=== PATIENT | male | born 1950 | race Caucasian/White ===

== ENCOUNTER → 2016-09-25 | Outpatient (CLI) | payer MEDICARE ==
[~2016-09-25] MED LIST: ASPIRIN81 M2 PO; ASPIRIN81 MG PO; BACTRIM DS TABL1 TA1 PO; BAYER CHEWABLE81 MG; BYSTOLIC5 MG PO; CELEXA PO; CLEOCIN PO; CLOPIDOGREL BIS75 MG PO; CLOPIDOGREL75 MG PO; CRESTOR10 MG PO; DIOVAN PO; DOCUSATE SODIU100 MG PO; EFFIENT10 MG PO; HYDROCODON-ACE1 EAC7 PO; IMDUR PO; IMDUR-ER60 M1 PO; LIPITOR80 MG PO; LISINOPRIL20 MG PO; LOPRESSOR PO; METFORMIN PO; MIRALAX119 GM; NITROGLYCERIN0.4 MG SL; NORVASC PO; PATIENT'S PHARMACY; PRAVACHOL20 MG PO; PRAVASTATIN SOD40 MG PO; PREVACID15 M1 PO; PROTONIX PO; SENNA S TABLET1 TAB PO
--- NOTE | ~2016-09-25 | CR63 ---
[facility] A Service of [facility] & [facility] RADIOLOGY TEXT RESULTS PATIENT: DORIS MORA LOCATION: [facility] : 50 UNIT #: [id number] AGE: [address]: Joselito Arzate MD SEX: M ORDER DR: [id number] [facility] [address] [place], [place] [address] [id number] O MR#: [id number] Acc #: [id number] NAME: DORIS MORA : 1950 SEX: M STUDY DATE/TIME: 09/25/2016 13:04 UNIT: [facility] ROOM: STUDY DESCRIPTION: CR Chest 2 View Attending Physician: Joselito Arzate M.D. Referring Physician: Joselito Arzate M.D. Ordering Physician: Joselito Arzate M.D. Primary Care Physician: Magdi Caceres M.D. MEDICAL IMAGING REPORT This report is preliminary unless electronic signature is present EXAM Chest PA and lateral 09/25/2016 COMPARISON STUDIES 01/12/2016. HISTORY Status post right nephrectomy for kidney cancer. Shortness of breath for 5 months. FINDINGS PA and lateral views obtained showing postoperative changes of prior bypass surgery. The heart size is normal and the lungs are clear. CONCLUSION 1. Status post CABG. 2. No active disease. Dictated by... Jer Lloyd M.D. THIS IS AN ELECTRONICALLY VERIFIED REPORT Jer Lloyd M.D. at 09/27/2016 4:46 PM EAN/antwan TD: 09/25/2016 17:34 JOB #: [id number] MEDICAL IMAGING REPORT COPY
[2016-09-25 13:33] LABS: ALBUMIN SERUM 4.7 g/dL (3.5-5.0); BILIRUBIN,TOTAL 0.9 mg/dL (0.2-2.0); BUN/CREATININE RATIO 8.12; CALCIUM SERUM 9.8 mg/dL (8.4-10.2); CREATININE SERUM 1.6 mg/dL (0.6-1.4); GLOM FILT RATE Estimated 46.3 mL/min (>60); POTASSIUM 5.1 mmol/L (3.5-5.1); PROTEIN TOTAL SERUM 7.8 g/dL (6.0-8.3)
== END | disposition home or self-care (01) ==
LOC: CLAB 11:35
PROVIDERS: Urology
DX: C64.1 Malignant neoplasm of right kidney, except renal pelvis (principal); Z95.1 Presence of aortocoronary bypass graft
CPT/HCPCS: 36415; 71020; 80053

== ENCOUNTER → 2016-09-26 | Outpatient (CLI) | payer MEDICARE ==
--- NOTE | ~2016-09-26 | CT2 ---
[facility] A Service of [facility] RADIOLOGY TEXT RESULTS PATIENT: DORIS MORA LOCATION: : 50 UNIT #: [id number] AGE: [address]: Joselito Arzate MD SEX: M ORDER DR: [id number] [facility] [address] [place], [place] [address] [id number] O MR#: [id number] Acc #: [id number] NAME: DORIS MORA : 1950 SEX: M STUDY DATE/TIME: 09/26/2016 10:03 UNIT: [facility] ROOM: STUDY DESCRIPTION: CT Abd and Pelv W Cont Attending Physician: Joselito Arzate M.D. Referring Physician: Joselito Arzate M.D. Ordering Physician: Joeslito Arzate M.D. Primary Care Physician: Magdi Caceres M.D. MEDICAL IMAGING REPORT This report is preliminary unless electronic signature is present EXAM CT of the abdomen and pelvis without and with contrast, 09/26/2016. HISTORY Difficulty urinating. Patient has a history of a right renal mass and is status post right nephrectomy. Patient underwent a CT scan in January 2016 that showed a mixed density lesion with potentially some enhancing nodules within the nephrectomy bed. This exam is requested for surveillance for metastatic disease. TECHNIQUE Arterial phase imaging was obtained through the kidneys. 90-second delayed phase imaging was obtained through the abdomen and pelvis and 3-minute delayed phase imaging was obtained through the kidneys. This CT exam was performed with one or more of the following radiation dose reduction techniques: automatic exposure control, adjustment of mA and/or kV according to patient size, and iterative reconstruction. FINDINGS On the prior CT from January 2016, this patient had some enhancing nodules within the right renal fossa. I suspect these may have been surgically resected, as there are now some surgical clips in this area that were not present on the prior study. There are a few scattered tiny nodules within this area, ranging in size from about 4 to 6 mm. These are indeterminate. I think they could reflect some normal mesenteric nodes or perhaps even vessels. Certainly, I do not see any convincing evidence of recurrent or residual disease within the right renal fossa. Images through the lung bases are clear. The spleen, stomach and proximal small bowel are within normal limits. No focal hepatic lesions are seen. The left kidney appears unremarkable. The [facility] A Service of [facility] RADIOLOGY TEXT RESULTS PATIENT: DORIS MORA LOCATION: [facility] : 50 UNIT #: [id number] AGE: [address]: Joselito Arzate MD SEX: M ORDER DR: gallbladder is surgically absent. There is some atherosclerotic involvement of the abdominal aorta with some extension into the origins of the visceral vessels that I think is resulting in some narrowing of the proximal celiac axis. There are some shotty retroperitoneal lymph nodes that have been unchanged since 2012 and thus are benign. There is no evidence of mechanical bowel obstruction. The appendix is visualized and is within normal limits. The prostate gland is enlarged and heterogeneous. The urinary bladder is probably within normal limits. I do not see any free fluid or adenopathy within the pelvis. Review of bone windows does not demonstrate any aggressive osseous abnormalities. IMPRESSION 1. Since the prior exam from January 2016, I think the patient probably has undergone resection of some enhancing nodules within the right renal fossa. I do not see any convincing evidence of recurrent or residual disease within this area. 2. Left kidney appears unremarkable. 3. Please see the body of the report for any other additional incidental findings. Dictated by... Rachael Aguayo M.D. THIS IS AN ELECTRONICALLY VERIFIED REPORT Rachael Aguayo M.D. at 09/26/2016 4:57 PM AFF/js TD: 09/26/2016 13:29 JOB #: [id number] MEDICAL IMAGING REPORT COPY
== END | disposition home or self-care (01) ==
LOC: CSSDAY 08:16
DX: C64.1 Malignant neoplasm of right kidney, except renal pelvis (principal)
CPT/HCPCS: 74177; Q9967

== ENCOUNTER 2017-03-07 11:29 | Observation (INO) | payer MEDICARE ==
[~2017-03-07] VITALS: Ht 172.7 cm; Wt 99.9 kg
--- NOTE | ~2017-03-07 | CO ---
Unit #: [id number] #: [id number] Patient: DORIS MORA [id number] [facility] [address] [place], [place] [address] [id number] I MR#: [id number] NAME: DORIS MORA ROOM: 328 Age: 66 Sex: M Admission Date: 03/07/2017 : 1950 Attending Physician: Tomás Barrow M.D. Primary Care Physician: Magdi Caceres M.D. Consultation Date: 03/08/2017 CONSULTATION REPORT PRIMARY CARE PHYSICIAN Magdi Caceres M.D. REASON FOR CONSULTATION Vision loss on the right side. PATIENT IDENTIFICATION This is a 66-year-old right-handed white male, who was evaluated in room 328 at [facility]. SOURCE OF INFORMATION The patient. PROBLEM LIST 1. History of coronary artery disease. 2. Diabetes mellitus type 2. 3. Hypertension. 4. Hyperlipidemia. 5. GERD. 6. Chronic kidney disease. 7. Constipation. 8. Questionable obesity. 9. Status post EGD and colonoscopy and coronary artery bypass grafting. 10. Prior right nephrectomy. HISTORY OF PRESENT ILLNESS This is a very pleasant, but very anxious 66-year-old gentleman, who actually presented to the emergency room yesterday and the reason was because reportedly he was sent by Dr. Patel at [facility] for possible central retinal artery occlusion. His history is very sketchy. He reports that about 3 weeks ago, he went to the doctor for routine checkup and was told that he has a retinal hemorrhage. Then about a week or so ago, he went to Dr. Patel because he was referred there and he said that he wanted to do some eye procedure with eye injection or taking something off. For some reason, it was not scheduled then and what strange is that he was on aspirin and Plavix and they were not stopped, but he started getting worse and it looks like the , he called the nurse and said his vision is getting worse and it looks like what he was describing was central vision loss and he could see a TV and something on the periphery and left lower region and that is about it in the right eye, so they made an emergency appointment for him yesterday and he went there and he was seen and was sent here for further workup. I talked to the ER physician and requested MRI, CT, and CTA, but it looks like that has not been done. Uncertain about that, Ophthalmology is supposed to see Unit #: [id number] #: [id number] Patient: DORIS MOAR. Cardiology had been consulted. He is very restless and wants to go home. There is something about his truck. His vital signs are stable. He does not have any bleeding or clotting disorder, otherwise supposedly on aspirin and Plavix. His carotids totally were unremarkable. CT was reported as unremarkable. MRI and CT are not done. I do not see any significant problem with his kidney function. His estimated GFR was anywhere from 47.8 to 56.9. Cardiology is seeing him. Ophthalmology consultation is in order. He does not have any double vision, speech swallowing, or breathing problem. No headaches or migraines. No focal weakness or numbness. He denies any noncompliance. PAST MEDICAL HISTORY As discussed above. PAST SURGICAL HISTORY As discussed above. ALLERGIES Clindamycin and Cipro. HOME MEDICATIONS Glucophage 1000 mg p.o. at bedtime, Lopressor 100 mg p.o. b.i.d., aspirin 81 mg daily, Plavix 75 mg daily, Norvasc 5 mg at bedtime, pravastatin sodium 40 mg, Protonix 40 mg. FAMILY HISTORY Strokes in the family. SOCIAL HISTORY He is single. He apparently lives alone. Denies tobacco, alcohol, or drug use. He is retired. REVIEW OF SYSTEMS GENERAL: Vision changes. No weight issues. No sleep problems. No fever, chills, rigor, or sweats. HEENT: No headaches. No double vision, earache, runny nose, or sore throat. CARDIOVASCULAR: No chest pain, clubbing, cyanosis, orthopnea, or palpitation. PULMONARY: No shortness of air, cough, or expectoration. GASTROINTESTINAL: No nausea, vomiting, diarrhea, or constipation. GENITOURINARY: No genitourinary symptoms. EXTREMITIES: No extremity problems. BACK: No back problems. PSYCHIATRIC: No psychotic issue. NEUROLOGIC: As discussed. No other hematologic, dermatologic, or endocrine issues known to me. Ophthalmological issues discussed in detail in history of present illness. Unit #: [id number] #: [id number] Patient: DORIS MORA PHYSICAL EXAMINATION VITAL SIGNS: Temperature 98 degrees Fahrenheit, pulse 58, respirations 19, blood pressure 155/87, O2 saturations 98% to 100%. Weight of 218 pounds. BMI was 33. NEUROLOGIC: The patient is awake. He is alert. He is oriented. He can name and he can follow commands. No right or left confusion. No finger agnosia. Cranial nerve examination, he has what looks like central loss of vision. On periphery, he can see movement. He cannot read. I cannot say otherwise field issue. His left eye corrected is essentially 20/20. Pupils are round, reactive to light, and accommodation. Eye movements are conjugate. No ptosis. No nystagmus. Sensation on the face and scalp are normal. Strength of muscles of facial expression normal. Hearing seemed to be intact. Tongue was midline. Uvula was midline. Palate elevation was normal. Head turning and shoulder shrugs are unremarkable. Motor examination demonstrated normal bulk, tone. Strength was essentially 5/5. Sensory examination intact for soft touch and pain sensation. No extinction was seen. Romberg was negative. Gait examination was otherwise benign. I could not get any reflexes. I could not check toe signs. This lamar is ready wearing his shoes, wearing his private clothes, and wants to go home. DIAGNOSTIC STUDIES LABORATORY RESULTS: His chemistry profile looked okay. Lipid panel shows LDL of 80, cholesterol was 126, triglyceride 87. White count 4.6, H and H of 13.7 and 40.2, platelet count is 110. IMAGING STUDIES: Reviewed including CTA carotid report. Preliminary says normal, but I do not have that report. IMPRESSION This is a very interesting, but very complicated 66-year-old gentleman with what looks like central artery occlusion, but what is concerning is that this has been going on for 2 to 3 weeks and getting worse. He says that he has hemorrhage first, but he yet to stop his aspirin and Plavix and then he went to another contact center professional who said he is going to do some sort of eye procedure and injections or put a needle in his eye and even that was not done and then he goes back and he was told that he has a bigger problem and central artery occlusion and that all does not really make sense to me the way it is. Was this a stroke. His CT is okay. He was supposed to have CTA or MRA done and that has not been done. He is supposed to have an MRI done, that was not done. His echo was done, and he may need a LUCIANA and he has no hypercoagulable state. Ophthalmology is supposed to see him. He is nonsmoker. I have requested workup and I will follow up on any neurologic issue and I agree that if his MRA is okay because I am not going to give him contrast as he has single kidney and I do not want to take any chances and if his MRA and MRI are okay, then probably he would need an event monitor or LUCIANA, but neurologically, I would not do anything. If okay with Cardiology, I will just do Plavix or aspirin only because of this "hemorrhage." Ophthalmology is supposed to see him. Again the history is very sketchy. The timings are very sketchy Unit #: [id number] #: [id number] Patient: DORIS MORA and is this going on for 3 weeks, what was the first event, what is the subsequently event, hemorrhage. I could not get anything. I could not do ophthalmoscopic examination. He probably needs a dilated exam and we probably need all the records, but it is a weekend and all the Ophthalmology centers are closed, so we need help from all the team members to sort this out and I told him I even addressed his truck issue. He said now it is okay, it is parked outside. Please see my orders. Dictated by... Garland Jones/leora TD: 03/10/2017 01:13 JOB #: [id number] CONSULTATION REPORT Page 1 of 1 X Basil Asif MD CONSULTATION REPORT
--- NOTE | ~2017-03-07 | DS ---
Unit #: [id number] #: [id number] Patient: DORIS MORA [id number] [address] [address] [id number] I MR#: [id number] NAME: DORIS MORA ROOM: 328 Age: 66 Sex: M Admission Date: 03/07/2017 : 1950 Discharge Date: 03/09/2017 Attending Physician: Tomás Barrow M.D. Primary Care Physician: Magdi Caceres M.D. DISCHARGE SUMMARY 66-year-old white male has a history of coronary artery disease with history of right renal mass, status post nephrectomy and diabetes mellitus type 2, hypertension, hyperlipidemia, obstructive sleep apnea, CKD, who came to the emergency room after told by ophthalmology he might have had a possible stroke. He has noticed some loss of vision in the right eye and had some hemorrhage in his right eye. During his hospital stay he was seen by Dr. Asif. He had MRI and MRA done, which was unremarkable. He was also seen by the brazing machine operator, Dr. Richter. The patient is stable at this time to be discharged home to be followed as an outpatient by Dr. Richter and ophthalmology. 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 HOME MEDICATIONS 1. Metformin 1,000 mg twice daily. 2. Amlodipine 5 mg at bedtime. 3. Metoprolol 100 mg twice daily. 4. Atorvastatin 80 mg daily. 5. Aspirin daily. 6. Plavix 75 mg daily. 7. Protonix 40 mg b.i.d. CONDITION AT DISCHARGE Stable. FOLLOWUP With cardiology as an outpatient. Follow with Dr. Escobedo, neurology, as an outpatient. Followup with ophthalmology as an outpatient, Alejandro Dictated by... Garland Bowman/dereje TD: 03/10/2017 11:30 JOB #: [id number] Unit #: [id number] #: [id number] Patient: DORIS MORA DISCHARGE SUMMARY Page 1 of 1 X Denia Morin MD X DISCHARGE SUMMARY
--- NOTE | ~2017-03-07 | MR18 ---
[facility] A Service of [facility] & [facility] RADIOLOGY TEXT RESULTS PATIENT: DORIS MORA LOCATION: [facility] 328-01 : 50 UNIT #: [id number] AGE: [address]: Tomás Barrow MD SEX: M ORDER DR: [id number] [facility] [address] [place], [place] [address] [id number] I MR#: [id number] Acc #: [id number] NAME: DORIS MORA : 1950 SEX: M STUDY DATE/TIME: 03/08/2017 15:11 UNIT: [address] ROOM: [facility] STUDY DESCRIPTION: MR Brain Wo Contrast Attending Physician: Tomás Barrow M.D. Ordering Physician: Basil Asif M.D. Primary Care Physician: Magdi Caceres M.D. MRI CENTER REPORT This report is preliminary unless electronic signature is present. EXAM MRI brain without. HISTORY Stroke evaluation. 66-year-old male patient with right eye visual loss. Concern for possible CVA. Symptoms started on 03/06/2017. History of hypertension and history of right kidney cancer removed. COMMENTS MRI of the brain was performed without contrast using routine 1.5T imaging technique. COMPARISON Comparison head CT is from 03/07/2017. FINDINGS There is no evidence for a recent ischemic insult on the diffusion series. There is mild generalized atrophy. There is no extraaxial fluid collection. The mastoid air cells are clear. There is some vertebrobasilar dolichoectasia with the ectatic left vertebral artery resulting in mild mass effect on the medulla. The major intracranial flow voids are maintained. Otherwise, there is no intracranial mass effect and there is no extraaxial fluid collection. There is no MRI evidence for intracranial hemorrhage. There is a small focus of signal abnormality in the right parietal cortex consistent with small focus of gliosis due to remote insult. It is up to 1.2 cm in dimension. There are small areas of white matter signal abnormality, subcortical, deep and periventricular white matter otherwise which are nonspecific but likely due to mild small vessel disease. Partly seen is paranasal sinus disease. The patient has had prior paranasal sinus surgery, and there is partly seen lesion left maxillary sinus which is nonspecific on imaging. It could be some type of a STS. [facility] A Service of [facility] RADIOLOGY TEXT RESULTS PATIENT: DORIS MORA LOCATION: [facility] 328-01 : [birth year] UNIT #: [id number] AGE: [address]: Tomás Barrow MD SEX: M ORDER DR: mucocele. It measures about 1.4 x 2.2 cm dimension. View of the earlier head CT does not include this area and there is no prior sinus CT. Also some polypoid mucosal disease appreciated in the posterior left nasal cavity to the anterior left nasopharynx about 1.4 cm dimension. I would recommend that this patient be evaluated with a followup CT of the paranasal sinuses to assess the bone changes, and please correlate with the sinus surgery history. There is mucosal disease and partial opacification in the ethmoid air cells. IMPRESSION 1. There is no evidence for a recent ischemic insult on the diffusion series. 2. There is a small focus of chronic malacia right parietal cortex and there is mild probable sequelae of small vessel disease. 3. Some vertebrobasilar dolichoectasia noted. 4. There is extensive paranasal sinus disease likely with prior surgery. It is only partly in the field of view and I would recommend correlation with a CT of the paranasal sinuses for better assessment of bony anatomy. See full description above. STAT * RESULT Dictated by... Shira Bender M.D. THIS IS AN ELECTRONICALLY VERIFIED REPORT Shira Bender M.D. at 03/08/2017 4:09 PM NAOMI/charmaine TD: 03/08/2017 15:53 JOB #: [id number] MRI CENTER REPORT Page 1 of 1 COPY
--- NOTE | ~2017-03-07 | EKG ---
PATIENT: DORIS MORA UNIT #: [id number] Ventricular Rate: 44 BPM Atrial Rate: 44 BPM P-R Interval: 174 ms QRS Duration: 82 ms Q-T Interval: 456 ms QTC Calculation(Bezet): 389 ms P [place]: 47 degrees Calculated R [place]: -2 degrees Calculated T [place]: 39 degrees Diagnosis Line: Marked sinus bradycardia Diagnosis Line: Borderline ECG Diagnosis Line: When compared with ECG of 16-MAY-2016 05:35, Diagnosis Line: No significant change was found Diagnosis Line: Confirmed by PAVAN SAPP MD ([id number]) on 03/09/2017 Diagnosis Line: 2:50:57 PM INTERPRETING MD: SENAIT MAYEN
--- NOTE | ~2017-03-07 | US37 ---
[facility] A Service [facility] RADIOLOGY TEXT RESULTS PATIENT: DORIS MORA LOCATION: [facility] : 50 UNIT #: [id number] AGE: [address]: Tomás Barrow MD SEX: M ORDER DR: [id number] [address] [place], [place] [address] [id number] I MR#: [id number] Acc #: [id number] NAME: DORIS MORA : 1950 SEX: M STUDY DATE/TIME: 03/08/2017 7:29 UNIT: [address] ROOM: [address] [place] [address] DESCRIPTION: US Carotid W/Doppler Bilateral Attending Physician: Tomás Barrow M.D. Ordering Physician: Ed Doctor [id number] [facility] Primary Care Physician: Magdi Caceres M.D. MEDICAL IMAGING REPORT This report is preliminary unless electronic signature is present EXAM Carotid Doppler ultrasound. HISTORY Loss of vision in the right eye 1 week ago. Chronic hypertension TECHNIQUE Ultrasound evaluation was performed with grayscale, color flow and Doppler spectral waveform analysis. TECHNIQUE Bilateral carotid ultrasound examination was performed using grayscale, spectral Doppler, and color flow Doppler imaging. Carotid flow was assessed using standards based on NASCET methodology. FINDINGS No significant atheromatous plaque is identified within the carotid arteries in the neck bilaterally. Doppler evaluation shows normal flow velocities and normal Doppler waveforms within the carotid and vertebral arteries bilaterally. There is no evidence of significant carotid stenosis in the neck. IMPRESSION Normal carotid Doppler ultrasound examination. Dictated by... Joselito Wiggins M.D. THIS IS AN ELECTRONICALLY VERIFIED REPORT Joselito Wiggins M.D. at 03/09/2017 10:32 AM RLF/candi [facility] A Service [facility] RADIOLOGY TEXT RESULTS PATIENT: DORIS MORA LOCATION: [facility] : 50 UNIT #: [id number] AGE: [address]: Tomás Barrow MD SEX: M ORDER DR: TD: 03/09/2017 05:53 JOB #: [id number] MEDICAL IMAGING REPORT Page 1 of 1 COPY
--- NOTE | ~2017-03-07 | HP ---
Unit #: [id number] #: [id number] Patient: DORIS MORA [id number] [address] [place], [place] [address] [id number] MR#: [id number] NAME: DORIS MORA ROOM: Age: 66 Sex: M Admission Date: 03/07/2017 : 1950 Attending Physician: Johnnie Blackwell M.D. Primary Care Physician: Magdi Caceres M.D. HISTORY AND PHYSICAL CHIEF COMPLAINT Vision loss. HISTORY OF PRESENT ILLNESS The patient is a 66-year-old male with a history of a coronary artery disease, history of a right renal mass, status post nephrectomy and diabetes mellitus type 2, hypertension, hyperlipidemia, and obstructive sleep apnea and chronic kidney disease, brought to the emergency room from the ophthalmology for possible stroke. The patient stated the patient was having problems with the eye and was seen by the personnel coordinator for the eyeglass change. The patient was requiring the prescription glasses; however, the patient was sent to the ophthalmology for the further workup. The patient was found to have a hemorrhage in the retina. The patient was scheduled to follow with the ophthalmology in a few weeks. However, the patient states that the patient started losing the eye vision in the central vision and able to see the peripheral of the object with the right eye. The patient went to the ophthalmology earlier today and was sent to the emergency room for further workup. The patient had a CT of the head that shows no acute intracranial findings. The patient is getting admitted for the further workup. Denies any fever. Denies any chill. Denies any trauma, nausea or vomiting, headache. PAST MEDICAL HISTORY History of a coronary artery disease, diabetes mellitus type 2, hypertension, hyperlipidemia, gastroesophageal reflux disease, hyperlipidemia, chronic kidney disease, constipation and obesity. PAST SURGICAL HISTORY History of a cardiac cath, EGD and colonoscopy, coronary artery bypass grafting, prior right nephrectomy. HOME MEDICATIONS Patient is on Glucophage, Lopressor, aspirin, Norvasc, pravastatin, Protonix, Plavix. ALLERGIES Clindamycin and ciprofloxacin. SOCIAL HISTORY No history of smoking cigarettes, alcohol or any illicit drug abuse. FAMILY HISTORY Family history positive for the strokes in the family. Unit #: [id number] #: [id number] Patient: DORIS MORA REVIEW OF SYMPTOMS Positive for the central vision loss in the right eye. Denies any fever. Denies any chill. Denies any nausea or vomiting. Denies any chest pain. Denies any headache. Other systems have been reviewed and all other systems are negative. PHYSICAL EXAMINATION GENERAL APPEARANCE: On examination the patient is sitting on a chair, not in acute distress. VITAL SIGNS: Temperature 98, pulse 44, respiratory rate 20, blood pressure 141/80, sating 99% at room air. HEENT: Head atraumatic and normocephalic. Pupils with the right pupil dilated. NECK: Supple. LUNGS: Decreased air entry at the bases. HEART: Regular rhythm, bradycardia, and positive for murmur. ABDOMEN: Soft, positive bowel sounds. EXTREMITIES: No cyanosis. No clubbing. NEUROLOGIC: Motor strength is normal in upper and lower extremities with the central vision loss in the right eye. No facial droop. DIAGNOSTIC STUDIES LABORATORY DATA: Glucose is 84 and troponin is less than 0.05 and WBC is 4.9, hemoglobin 14.1, hematocrit 42, platelet is 176, INR is 1.1 and sodium 141, potassium 4.5, chloride 109, bicarb 25, glucose 94, BUN 14, creatinine 1.5, AST 26, ALT 22, alkaline phosphatase 52. ASSESSMENT 1. Right eye central vision loss. 2. Bradycardia. 3. Diabetes. 4. Hypertension. PLAN 1. Plan to admit the patient to the observation with the telemetry. 2. Patient will be seen by neurology to rule out the stroke. 3. The patient will also follow with ophthalmology for the central vision loss. 4. Hold the Lopressor for the bradycardia. 5. Follow with the serial troponins. 6. Follow with the MRI/MRA of the brain. 7. Repeat the labs again in the morning. 8. If patient continues to remain bradycardic, will have the cardiology evaluation as needed. Dictated by Garland Rosario TD: 03/07/2017 16:32 JOB #: [id number] Unit #: [id number] #: [id number] Patient: DORIS MORA HISTORY AND PHYSICAL Page 1 of 1 X RYAN SOMMER MD HISTORY AND PHYSICAL
--- NOTE | ~2017-03-07 | CO ---
Unit #: [id number] #: [id number] Patient: DORIS MERCHANT [id number] [address] [place], [place] [address] [id number] I MR#: [id number] NAME: DORIS MERCHANT ROOM: 328 Age: 66 Sex: M Admission Date: 03/07/2017 : 1950 Attending Physician: Tomás Barrow M.D. Primary Care Physician: Magdi Caceres M.D. Consultation Date: 03/07/2017 CONSULTATION REPORT REASON FOR CONSULTATION Probable retinal artery embolism, rule out cardiac causes. HISTORY OF PRESENT ILLNESS Mr. Merchant is a 66-year-old white male, known to me for the last about 5 years, who is known to have diabetes mellitus, hypertension, hyperlipidemia, and was diagnosed to have three-vessel coronary artery disease in 04/2013 when he presented to the hospital with unstable angina pectoris. He subsequently underwent three-vessel bypass graft surgery with left internal mammary graft to LAD, vein graft to second marginal branch of circumflex, and a vein graft to distal right coronary artery. Because of recurrent angina pectoris in 2014, a repeat catheterization was performed, which revealed a preserved left ventricular systolic function, LEHMAN graft to LAD, and vein graft to right coronary artery were patent, but the vein graft to marginal branch of circumflex was occluded at its aortic anastomosis. It was elected to continue him on medical therapy with inclusion of dual anti-platelet regimen of Plavix and aspirin. His admission is necessitated because of a new diagnosis of probable right retinal artery occlusion cause of which is being investigated. His symptoms started about 2 or 3 weeks ago with blurring of the right eye visual brown and he underwent fluorescein angiography, evaluation for possible glaucoma and was evaluated by Dr. Patel from the Retina Service and advised admission to the hospital. The patient says he notices a big visual defect in the middle of his visual field as there is a black blob sitting there. He denies any headaches, has not experienced any other neurological symptoms of loss of balance, weakness in extremities, headache, diplopia, or blurred vision. From a cardiac standpoint, he complains of rare episodes of chest discomfort, described as pressure and heaviness in the mid anterior chest. On numerous occasions, he has complained of a "vibrating sensation" in his chest early in the morning when he wakes up, but it resolved spontaneously. He remains reasonably active. He denies any chest discomfort on exertion, exertional dyspnea, orthopnea, nocturnal dyspnea, and he denies any syncope, near syncope, amblyopia. There is no history of strokes or transient ischemic attacks. He denies any history of rheumatic fever or heart murmur. PAST MEDICAL HISTORY Includes: 1. Diabetes mellitus. 2. Hyperlipidemia. 3. Hypertension. Unit #: [id number] #: [id number] Patient: DORIS MERCHANT 4. Removal of right renal mass. 5. Cholelithiasis and cholecystectomy. 6. Three-vessel coronary artery bypass graft surgery. 7. Gastroesophageal reflux disease. 8. Obstructive sleep apnea. 9. Nephrectomy in 2013. 10. Thrombocytopenia. 11. Mild obesity. SOCIAL AND PERSONAL HISTORY He smoked during his teenage years and has used very small amount of alcohol throughout his life. FAMILY HISTORY His father suffered a massive IL in his 40s. Mother had a rheumatic heart disease. One brother had carotid artery disease. PHYSICAL EXAMINATION GENERAL: Reveals a middle-aged moderately obese male, in no acute cardiorespiratory distress. VITAL SIGNS: Blood pressure is 140/78 mmHg. NECK: Both carotids have a diminished upstroke without any bruits and there is no ankle edema. No jugular venous distention is noted. CARDIAC: Shows apical impulse is palpable in the fifth intercostal space and midclavicular line and is normal. Both heart sounds are normal. Rhythm is regular. No ectopy is noted. There is no murmur or gallop. CHEST: Shows normal to palpation, percussion, and auscultation. ABDOMEN: Shows obesity. There is no hepatosplenomegaly, free fluid, or masses. RECTAL: Deferred. SAFETY BELT INSTALLER: Within normal limits. DIAGNOSTIC STUDIES LABORATORY RESULTS: Lab investigations reveal glucose is 94, creatinine 1.5, GFR 47.8, potassium is 4.5, total protein is normal. INR was 1.1, PTT 21.7. Hemoglobin 14.1, hematocrit 42.0. IMPRESSION 1. Possible right retinal artery occlusion secondary to embolic event from carotid artery or from ascending aorta. 2. Status post three-vessel bypass surgery in 2012. 3. Occluded saphenous vein graft to obtuse marginal branch with patent left internal mammary artery graft to left anterior descending, and patent vein graft to right coronary artery in about 2014 cardiac catheterization. 4. Diabetes mellitus. 5. Hyperlipidemia. 6. Truncal obesity. 7. Status post right nephrectomy for a malignant renal mass. PLAN The patient is being admitted to the hospital. Carotid Doppler ultrasound would be performed. A 2D echo and Doppler study would be performed to rule out LV apical thrombus. He may require a transesophageal echocardiogram to rule out atherosclerotic disease in aortic root and arch as a source of embolus if carotid Doppler ultrasound shows no significant stenosis. Thyroid function studies would be checked. He would be continued on aspirin and Plavix for the time being along with beta-blockers, statin, and CECI inhibitor should be restarted, but we will Unit #: [id number] #: [id number] Patient: DORIS MERCHANT defer that to Internal Medicine Service. Thank you very much. Dictated by... Garland Varma/leora TD: 03/10/2017 02:11 JOB #: [id number] Be Patel M.D. CONSULTATION REPORT Page 1 of 1 X Tera Richter MD X CONSULTATION REPORT
--- NOTE | ~2017-03-07 | CT71 ---
[facility] A Service of [facility] RADIOLOGY TEXT RESULTS PATIENT: DORIS MORA LOCATION: [facility] 328 : 50 UNIT #: [id number] AGE: [address]: Tomás Barrow MD SEX: M ORDER DR: [id number] [place] [id number] [facility]. [place], [place] [address] [id number] I MR#: [id number] Acc #: [id number] NAME: DORIS MORA : 1950 SEX: M STUDY DATE/TIME: 03/07/2017 15:37 UNIT: [address] ROOM: [address] [place] [address] DESCRIPTION: CT Head Wo Contrast Attending Physician: Char Phillips M.D. Ordering Physician: Johnnie Blackwell M.D. Primary Care Physician: Magdi Caceres M.D. MEDICAL IMAGING REPORT This report is preliminary unless electronic signature is present EXAM CT head INDICATIONS Headache. Abnormal physical exam. Right eye vision changes. Headache. TECHNIQUE CT of the head without contrast. This CT exam was performed with one or more of the following radiation dose reduction techniques: automatic control, adjustment of mA and/or kV according to patient size, and iterative reconstruction. COMPARISON CT head dated 07/14/2009. FINDINGS Axial noncontrast images were obtained from the skull base to the vertex. Ventricular size and configuration are normal. There is no evidence of acute infarct or hemorrhage. There are no extra-axial fluid collections. No mass lesion or mass effect is seen. There are no skull fractures. IMPRESSION Normal noncontrast head CT. Dictated by... Troy Kennedy M.D. THIS IS AN ELECTRONICALLY VERIFIED REPORT Troy Kennedy M.D. at 03/08/2017 3:53 PM RPC/rnr TD: 03/08/2017 04:23 [facility] A Service [facility] RADIOLOGY TEXT RESULTS PATIENT: DORIS MORA LOCATION: [facility] 328 : 50 UNIT #: [id number] AGE: [address]: Tomás Barrow MD SEX: M ORDER DR: JOB #: [id number] MEDICAL IMAGING REPORT Page 1 of 1 COPY
--- NOTE | ~2017-03-07 | MR122 ---
[facility] A Service of [facility] RADIOLOGY TEXT RESULTS PATIENT: DORIS MORA LOCATION: [facility] 328-01 : 50 UNIT #: [id number] AGE: [address]: Tomás Barrow MD SEX: M ORDER DR: [id number] [facility] [address] [place], [place] [address] [id number] I MR#: [id number] Acc #: [id number] NAME: DORIS MORA : 1950 SEX: M STUDY DATE/TIME: 03/08/2017 14:49 UNIT: [address] ROOM: [facility] STUDY DESCRIPTION: MR MRA Head Wo Contrast Attending Physician: Tomás Barrow M.D. Ordering Physician: Basil Asif M.D. Primary Care Physician: Magdi Caceres M.D. MRI CENTER REPORT This report is preliminary unless electronic signature is present. EXAM MR angiogram, intracranial. HISTORY Right eye vision loss. Concern for possible CVA, vision loss on , 03/06. History of hypertension. COMMENT MR angiography performed [place] vasculature. Please be aware that this study will not resolve the course of the right ophthalmic artery. There is supply of the basilar from the dominant left vertebral artery. The right vertebral artery appears to terminate in a PICA vessel. Again, there is some ectasia of the distal left vertebral artery such that there is some mass effect on the anterior aspect of the medulla. There is no intracranial vascular cutoff. There is probably a tiny anterior communicator present. No posterior communicator of significant size is seen on either side. No focal central stenosis is appreciated. The origin of the right ophthalmic artery is patent. No intracranial aneurysm is suspected allowing for the technical limitation of MR angiography in general for assessment for intracranial aneurysms. IMPRESSION 1. No intracranial vascular cutoff or focal central stenosis. The left vertebral artery is dominant supplying the basilar with some ectasia. The right vertebral artery terminates in a PICA vessel. STAT * RESULT Dictated by... Shira Bender M.D. [facility] A Service of [facility] RADIOLOGY TEXT RESULTS PATIENT: DORIS MORA LOCATION: [facility] 328-01 : 50 UNIT #: [id number] AGE: [address]: Tomás Barrow MD SEX: M ORDER DR: THIS IS AN ELECTRONICALLY VERIFIED REPORT Shira Bender M.D. at 03/09/2017 9:20 AM NAOMI/charmaine TD: 03/08/2017 16:12 JOB #: [id number] MRI CENTER REPORT Page 1 of 1 COPY
--- NOTE | ~2017-03-07 | MR134 ---
[facility] A Service of [facility] RADIOLOGY TEXT RESULTS PATIENT: DORIS MORA LOCATION: [facility] : 50 UNIT #: [id number] AGE: [address]: Tomás Barrow MD SEX: M ORDER DR: [id number] [place] [address] [address] [facility]. [place], [place] [address] [id number] I MR#: [id number] Acc #: [id number] NAME: DORIS MORA : 1950 SEX: M STUDY DATE/TIME: 03/08/2017 15:31 UNIT: [address] ROOM: [address] [place] [address] DESCRIPTION: MR MRA Neck Wo Contrast Attending Physician: Tomás Barrow M.D. Ordering Physician: Basil Asif M.D. Primary Care Physician: Magdi Caceres M.D. MRI CENTER REPORT This report is preliminary unless electronic signature is present. EXAM MR angiogram neck without contrast. HISTORY Right visual loss for 3 days. TECHNIQUE MR angiogram of the neck was performed without contrast FINDINGS The origins of the common carotid arteries and vertebral arteries are not optimally visualized due to motion. The remainder of the common carotid arteries and the carotid bulbs and cervical internal carotid arteries are widely patent. 0% carotid artery stenosis by NASCET criteria. Both external carotid arteries are patent. Dominant left vertebral artery and hypoplastic right vertebral artery. IMPRESSION 1. No evidence of carotid artery stenosis by NASCET criteria. 2. Partly limited evaluation of the origins of the common carotid arteries and vertebral arteries. Dictated by... Bigg Bae M.D. THIS IS AN ELECTRONICALLY VERIFIED REPORT Bigg Bae M.D. at 03/09/2017 10:07 PM DFL/jane TD: 03/09/2017 17:13 JOB #: [id number] [facility] A Service [facility] RADIOLOGY TEXT RESULTS PATIENT: DORIS MORA LOCATION: [facility] 328 : 50 UNIT #: [id number] AGE: [address]: Tomás Barrow MD SEX: M ORDER DR: MRI CENTER REPORT Page 1 of 1 COPY
[~2017-03-07 11:29] MED LIST changes: -CLOPIDOGREL75 MG PO; -LIPITOR80 MG PO; -PATIENT'S PHARMACY; -PROTONIX PO
[2017-03-07 12:20] LABS: POC - CKMB 1.8 ng/mL (0.0-7.9); POC - TROPONIN <0.05 ng/mL (<=0.05)
[2017-03-07 13:23] LABS: BASOPHIL% 0.7 % (0-2.5); EOSINOPHIL# 0.3 X10e3 (0-0.7); EOSINOPHIL% 6.9 % (0.0-7.0); HEMOGLOBIN 14.1 gm/dL (13.0-16.0); LYMPHOCYTE# 1.7 X10e3 (1.0-3.5); LYMPHOCYTE% 33.8 % (17.0-45.0); MEAN CELL VOLUME 91.4 FL (83-96); MEAN CORPUSCULAR HEMOGLOBIN 30.7 PG (28-34); MEAN CORPUSCULAR HGB CONC 33.5 g/dL (30-36); MEAN PLATELET VOLUME 10.2 FL (6.5-11.5); MONOCYTE# 0.5 X10e3 (0-1.0); MONOCYTE% 9.3 % (3.0-12.0); NEUTROPHIL# 2.4 X10e3 (1.5-7.1); NEUTROPHIL% 49.3 % (40-75); PLATELET COUNT 176 X10e3 (140-420); RED BLOOD COUNT 4.59 X10e (3.90-5.60); RED CELL DISTRIBUTION WIDTH 13.5 % (11.0-15.5); WHITE BLOOD COUNT 4.9 X10e3 (4.0-10.5)
[2017-03-07 13:28] LABS: DIFF IND NO
[2017-03-07 13:44] LABS: INR 1.1; PARTIAL THROMBOPLASTIN TIME 21.7 SECONDS (23.5-31.3); PROTHROMBIN TIME (PATIENT) 11.5 SECONDS (10.0-11.7)
[2017-03-07 13:55] LABS: ALBUMIN SERUM 4.5 g/dL (3.5-5.0); BILIRUBIN, DIRECT 0.1 mg/dL (0.0-0.2); BILIRUBIN,INDIRECT 0.7 mg/dL (0.0-0.9); BILIRUBIN,TOTAL 0.8 mg/dL (0.2-2.0); BUN/CREATININE RATIO 9.33; CALCIUM SERUM 9.4 mg/dL (8.4-10.2); CREATININE SERUM 1.5 mg/dL (0.6-1.4); GLOM FILT RATE Estimated 47.8 mL/min (>60); POTASSIUM 4.5 mmol/L (3.5-5.1); PROTEIN TOTAL SERUM 6.3 g/dL (6.0-8.3)
[2017-03-07] MEDS ORDERED: PATIENT'S PHARMACY (14:16)
[2017-03-07] MEDS ORDERED: PROTONIX PO (14:16)
[2017-03-07] MEDS ORDERED: CLOPIDOGREL75 MG PO (14:16)
[2017-03-07 18:56] LABS: THYROID STIMULATING HORMONE 1.95 uIU/ml (0.34-5.60)
[2017-03-07 19:03] LABS: FREE THYROXIN (T4) 0.81 ng/dL (0.58-1.64)
[2017-03-08 05:31] LABS: HEMATOCRIT 40.2 % (38.0-50.0); HEMOGLOBIN 13.7 gm/dL (13.0-16.0); MEAN CELL VOLUME 90.5 FL (83-96); MEAN CORPUSCULAR HEMOGLOBIN 30.8 PG (28-34); RED BLOOD COUNT 4.44 X10e (3.90-5.60); RED CELL DISTRIBUTION WIDTH 13.5 % (11.0-15.5); WHITE BLOOD COUNT 4.2 X10e3 (4.0-10.5)
[2017-03-08 06:34] LABS: BUN/CREATININE RATIO 10.76; CALCIUM SERUM 9.3 mg/dL (8.4-10.2); CREATININE SERUM 1.3 mg/dL (0.6-1.4); GLOM FILT RATE Estimated 56.9 mL/min (>60); POTASSIUM 4.2 mmol/L (3.5-5.1)
[2017-03-08 13:39] LABS: ALBUMIN SERUM 4.7 g/dL (3.5-5.0); BUN/CREATININE RATIO 9.23; CALCIUM SERUM 9.7 mg/dL (8.4-10.2); CREATININE SERUM 1.3 mg/dL (0.6-1.4); GLOM FILT RATE Estimated 56.9 mL/min (>60); POTASSIUM 4.6 mmol/L (3.5-5.1); PROTEIN TOTAL SERUM 7.8 g/dL (6.0-8.3)
[2017-03-08 14:01] LABS: %MB 1.4 % (0.0-4.0); MB 2.8 ng/ml
[2017-03-09] MEDS ORDERED: LIPITOR80 MG PO (12:59)
== END 2017-03-09 13:22 | disposition home or self-care (01) ==
LOC: CED 11:29 → CEDOF 16:05 → CED 16:39 → CEDOF 16:39 → C3A PCU 18:20
PROVIDERS: Emergency Medicine; Internal Medicine; Psychiatry & Neurology Neurology
DX: H34.11 Central retinal artery occlusion, right eye (principal); H54.61 Unqualified visual loss, right eye, normal vision left eye; I12.9 Hypertensive chronic kidney disease with stage 1 through stage 4 chronic kidney disease, or unspecified chronic kidney disease; E11.22 Type 2 diabetes mellitus with diabetic chronic kidney disease; N18.9 Chronic kidney disease, unspecified; I25.10 Atherosclerotic heart disease of native coronary artery without angina pectoris; E78.5 Hyperlipidemia, unspecified; K21.9 Gastro-esophageal reflux disease without esophagitis; E66.9 Obesity, unspecified; K59.00 Constipation, unspecified; Z68.33 Body mass index [BMI] 33.0-33.9, adult; Z88.1 Allergy status to other antibiotic agents; Z79.02 Long term (current) use of antithrombotics/antiplatelets; Z79.82 Long term (current) use of aspirin; Z79.84 Long term (current) use of oral hypoglycemic drugs; Z79.899 Other long term (current) drug therapy; Z95.1 Presence of aortocoronary bypass graft
CPT/HCPCS: 36415; 70450; 70544; 70547; 70551; 80048; 80053; 80061; 80076; 82550; 82553; 82947; 83036; 84439; 84443; 84484; 85025; 85027; 85610; 85652; 85730; 86140; 93005; 93306; 93880; 94760; 99284; G0378; J1815

== ENCOUNTER → 2017-04-02 | Outpatient (CLI) | payer MEDICARE ==
[~2017-04-02] MED LIST changes: +CLOPIDOGREL75 MG PO; +LIPITOR80 MG PO; +PATIENT'S PHARMACY; +PROTONIX PO
--- NOTE | ~2017-04-02 | CR63 ---
[facility] A Service of [facility] RADIOLOGY TEXT RESULTS PATIENT: DORIS MORA LOCATION: [facility] : 50 UNIT #: [id number] AGE: [address]: Joselito Arzate MD SEX: M ORDER DR: [id number] [facility] [address] [facility]. [place], [place] [address] [id number] O MR#: [id number] Acc #: [id number] NAME: DORIS MORA : 1950 SEX: M STUDY DATE/TIME: 04/02/2017 9:30 UNIT: [facility] ROOM: STUDY DESCRIPTION: CR Chest 2 View Attending Physician: Joselito Arzate M.D. Referring Physician: Joselito Arzate M.D. Ordering Physician: Joselito Arzate M.D. Primary Care Physician: Magdi Caceres M.D. MEDICAL IMAGING REPORT This report is preliminary unless electronic signature is present EXAM Chest, 04/02/2017, [facility]. HISTORY 66-year-old male patient followup renal malignancy, August 2013. Previous coronary stenting and bypass surgery. History of high blood pressure and asthma. COMPARISON Chest, 01/08/2017. FINDINGS PA and lateral chest views demonstrate normal heart size. Previous coronary stenting and bypass noted. Hilar structures are preserved. Bilateral lungs are clear with no evidence for metastatic disease. Costophrenic angles are preserved. IMPRESSION Previous coronary stenting and coronary bypass. No acute chest finding. No evidence for metastatic disease. Dictated by... Rayray Barbosa M.D. THIS IS AN ELECTRONICALLY VERIFIED REPORT Rayray Barbosa M.D. at 04/03/2017 8:06 AM NOLAN/jane TD: 04/02/2017 23:17 JOB #: [id number] [facility] A Service of [facility] RADIOLOGY TEXT RESULTS PATIENT: DORIS MORA LOCATION: [facility] : 50 UNIT #: [id number] AGE: [address]: Joselito Arzate MD SEX: M ORDER DR: MEDICAL IMAGING REPORT Page 1 of 1 COPY
--- NOTE | ~2017-04-02 | CT3 ---
[facility] A Service of [facility] RADIOLOGY TEXT RESULTS PATIENT: DORIS MORA LOCATION: [facility] : 50 UNIT #: [id number] AGE: [address]: Joselito Arzate MD SEX: M ORDER DR: [id number] [facility] [address] [place], [place] [address] [id number] O MR#: [id number] Acc #: [id number] NAME: DORIS MORA : 1950 SEX: M STUDY DATE/TIME: 04/02/2017 12:02 UNIT: [facility] ROOM: STUDY DESCRIPTION: CT Abd and Pelv WWo Cont Attending Physician: Joselito Arzate M.D. Referring Physician: Joselito Arzate M.D. Ordering Physician: Joselito Arzate M.D. Primary Care Physician: Magdi Caceres M.D. MEDICAL IMAGING REPORT This report is preliminary unless electronic signature is present EXAM CT of the abdomen pelvis without and with contrast 04/02/2017. INDICATIONS 66-year-old male with a history of renal cell carcinoma, 6-month followup. Malignancy diagnosed in 2013. Status post right nephrectomy and cholecystectomy. Observation for suspected malignant neoplasm and active malignancy. TECHNIQUE Noncontrast CT of the abdomen and pelvis was performed followed by contrast-enhanced imaging of the abdomen and pelvis. Contrast-enhanced abdomen and pelvis CT was performed. Comparison 06/06/2016. This CT exam was performed with one or more of the following radiation dose reduction techniques: Automatic exposure control, adjustment of mA and/or kV according to patient size, and iterative reconstruction. COMPARISON STUDIES 09/26/2016. FINDINGS CT abdomen without contrast: Included lung bases clear. No suspicious pulmonary nodule. Gallbladder surgically absent. Metallic clips adjacent to the nephrectomy bed are present. There is a tiny nonobstructing stone in the mid pole left kidney. There are vascular calcifications. CT Pelvis: No evidence of recently passed stone in the bladder. Prostate is enlarged, measuring up to 4.8 cm. Vascular calcifications in the pelvis. [facility] A Service of [facility] RADIOLOGY TEXT RESULTS PATIENT: DORIS MORA LOCATION: [facility] #: [id number] : 50 UNIT #: [id number] AGE: [address]: Joselito Arzate MD SEX: M ORDER DR: Contrast enhanced abdomen: Aorta demonstrates no aneurysm or dissection. Spleen and adrenal glands normal. Pancreas unremarkable. There is fatty infiltration of the liver. Left kidney is unremarkable. Previously described nodular density anterior to the right nephrectomy bed, measuring 6 mm is unchanged. There is, however, a new enhancing nodule superomedial to the nephrectomy bed on the right. This measures 8 mm. It demonstrates enhancement and is suspicious for local recurrence or metastatic disease. By report, the patient has previously undergone surgical resection of the nodules within the same area in the past. The 8 mm nodule is immediately adjacent to the second portion of the duodenum. Re-demonstration of shotty retroperitoneal nodes, not significantly changed. CT Pelvis: No evidence of radiopaque stone in the bladder. No drainable fluid collection in the pelvis. Bowel demonstrates no obstruction or focal inflammatory change. The appendix is normal. Inguinal canals demonstrate no adenopathy or fluid collection. Osseous structures demonstrate degenerative change in the thoracolumbar spine. No new suspicious bone lesion. IMPRESSION 1. Abnormal examination. New 8 mm suspicious enhancing soft tissue nodule along the superomedial margin of the nephrectomy bed on the right. Imaging features are most characteristic of local recurrence or metastatic disease until proven otherwise. 2. No other evidence to suggest metastatic disease in the abdomen or pelvis. Postop changes of right nephrectomy and cholecystectomy. 3. Shotty retroperitoneal nodes are unchanged. 4. The left kidney is unremarkable. 5. Prostatomegaly 6. The appendix is normal. 7. No suspicious bone lesion. Dictated by... Fortino Krause M.D. THIS IS AN ELECTRONICALLY VERIFIED REPORT Fortino Krause M.D. at 04/03/2017 6:04 PM KENJI/phoebe TD: 04/03/2017 11:46 JOB #: [id number] MEDICAL IMAGING REPORT Page 1 of 1 COPY
[2017-04-02 09:55] LABS: ALBUMIN SERUM 4.3 g/dL (3.5-5.0); BILIRUBIN,TOTAL 0.5 mg/dL (0.2-2.0); BUN/CREATININE RATIO 10.71; CALCIUM SERUM 9.6 mg/dL (8.4-10.2); CREATININE SERUM 1.4 mg/dL (0.6-1.4); POTASSIUM 4.6 mmol/L (3.5-5.1); PROTEIN TOTAL SERUM 7.7 g/dL (6.0-8.3)
== END | disposition home or self-care (01) ==
LOC: CCAT 09:00 → CRAD 09:00 → CCAT 10:00
PROVIDERS: Urology
DX: Z08 Encounter for follow-up examination after completed treatment for malignant neoplasm (principal); N40.0 Benign prostatic hyperplasia without lower urinary tract symptoms; Z95.1 Presence of aortocoronary bypass graft; Z85.528 Personal history of other malignant neoplasm of kidney; Z90.5 Acquired absence of kidney
CPT/HCPCS: 36415; 71020; 74178; 80053; 96360; 96361; Q9967